=== PATIENT | female | born 1985 ===

== ENCOUNTER 2016-10-03 09:04 | Emergency (ER) | payer MEDICAID ==
[2016-10-03 09:17] VITALS: BMI 24.1
[2016-10-03 09:20] VITALS: BP 127/85; PULSE 79; RESP 18; TEMP 98.1; O2SAT 98
[2016-10-03] MEDS ORDERED: Lidocaine 5% Patch TD STA (09:38)
--- NOTE | 2016-10-03 09:42 | ED PDOC ---
Arrival/HPI - General Chief Complaint: Back Pain Time Seen by Provider: 10/03/16 09:38 Historian: Patient - History of Present Illness Narrative History of Present Illness (Text): 10/03/16 09:39 31 y/o female, no pmh, nkda, c/o lower back pain x 1 day with no fall or trauma. Aching pain, spasm sensation, aggravated by movement, no rash, no numbness or tingling, no urinary or bowel incontinence or retention, no night sweat, no coughing, no other medical or psychological complaints. Past Medical History - Provider Review Nursing Documentation Reviewed: Yes - Infectious Disease Hx of Infectious Diseases: None - Psychiatric Hx Substance Use: No - Surgical History Hx Section: Yes (x2) - Anesthesia Hx Anesthesia: Yes Hx Anesthesia Reactions: No Hx Malignant Hyperthermia: No Family/Social History - Physician Review Nursing Documentation Reviewed: Yes Family/Social History: Unknown Family HX Smoking Status: Never Smoked Hx Alcohol Use: No Hx Substance Use: No Allergies/Home Meds Allergies/Adverse Reactions: Allergies No Known Allergies Allergy (Verified 04/08/14 10:04) Review of Systems - Review of Systems Constitutional: absent: Fatigue, Fevers Eyes: absent: Vision Changes ENT: absent: Hearing Changes Respiratory: absent: SOB, Cough, Sputum Cardiovascular: absent: Chest Pain Gastrointestinal: absent: Abdominal Pain, Diarrhea, Nausea, Vomiting Musculoskeletal: Back Pain, Myalgias. absent: Arthralgias, Neck Pain, Joint Swelling Skin: absent: Rash, Pruritis, Skin Lesions Neurological: absent: Headache, Dizziness, Focal Weakness, Gait Changes, Speech Changes, Facial Droop, Disequilibrium Psychiatric: absent: Anxiety, Depression Physical Exam Vital Signs Reviewed: Yes Vital Signs Temp Pulse Resp BP Pulse Ox 10/03/16 09:19 98.1 F 79 18 127/85 98 Temperature: Afebrile Blood Pressure: Normal Pulse: Regular Respiratory Rate: Normal Appearance: Positive for: Well-Appearing, Non-Toxic, Comfortable Pain Distress: Moderate Mental Status: Positive for: Alert and Oriented X 3 - Systems Exam Head: Present: Atraumatic, Normocephalic Pupils: Present: PERRL Extroacular Muscles: Present: EOMI Conjunctiva: Present: Normal Mouth: Present: Moist Mucous Membranes Neck: Present: Normal Range of Motion Respiratory/Chest: Present: Clear to Auscultation, Good Air Exchange. No: Respiratory Distress, Accessory Muscle Use Cardiovascular: Present: Regular Rate and Rhythm, Normal S1, S2. No: Murmurs Abdomen: Present: Normal Bowel Sounds. No: Tenderness, Distention, Peritoneal Signs Back: Present: Normal Inspection, Other (LS spine: +ttp and spasm noted on the bilateral paraspinal muscle region, no rash, no redness, no cellulitis, no cva tenderness, FROM without limitation but pain upon activemovement, sensation intact, motor 5/5, no saddling gait. ). No: CVA Tenderness, Midline Tenderness , Pain with Leg Raise, Decubitus Ulcer Upper Extremity: Present: Normal Inspection. No: Cyanosis, Edema Lower Extremity: Present: Normal Inspection. No: Edema Neurological: Present: GCS=15, Speech Normal, Motor Func Grossly Intact, Gait Normal, Memory Normal Skin: Present: Warm, Dry, Normal Color. No: Rashes Psychiatric: Present: Alert, Oriented x 3, Normal Insight, Normal Concentration Medical Decision Making ED Course and Treatment: 10/03/16 09:42 -toradol IM/lidoderm patch -UA 10/03/16 10:45 -UA show no UTI -Pain resolved and feels much better, will discharge home. -Discharge home with ibuprofen, flexeril, lidoderm patch, heat compression, avoid strenuous exercise or activity, follow up with your own pmd within 2 days , return to the ER for any new or worsening signs or symptoms. - Lab Interpretations Lab Results: Lab Results 10/03/16 09:38: Urine Color Yellow, Urine Appearance Clear, Urine pH 6.0, Ur Specific [place] >= 1.030, Urine Protein Trace H, Urine Glucose (UA) Negative, Urine Ketones Negative, Urine Blood Negative, Urine Nitrate Negative, Urine Bilirubin Negative, Urine Urobilinogen 0.2, Ur Leukocyte Esterase Negative, Urine RBC Negative, Urine WBC 0 - 2, Ur Epithelial Cells 10 - 12, Urine Bacteria Few I have reviewed the lab results: Yes Interpretation: No clinic. lab abnormalty - Medication Orders Current Medication Orders: Discontinued Medications Ketorolac Tromethamine (Toradol) 60 mg IM STAT STA Stop: 10/03/16 09:39 Last Admin: 10/03/16 09:47 Dose: 60 mg Lidocaine (Lidoderm) 1 ea TD STAT STA Stop: 10/03/16 09:39 Last Admin: 10/03/16 09:47 Dose: 1 karen - PA / ASSESSMENT ANALYST / Resident Statement / has reviewed & agrees with the documentation as recorded. Disposition/Present on Arrival - Present on Arrival Any Indicators Present on Arrival: No History of DVT/PE: No History of Uncontrolled Diabetes: No Urinary Catheter: No History of Decub. Ulcer: No History Surgical Site Infection Following: None - Disposition Have Diagnosis and Disposition been Completed?: Yes Diagnosis: Back muscle spasm, Back pain Disposition: HOME/ ROUTINE Disposition Time: 10:45 Patient Plan: Discharge Condition: IMPROVED Additional Instructions: Discharge home with ibuprofen, flexeril, lidoderm patch, heat compression, avoid strenuous exercise or activity, follow up with your own pmd within 2 days , return to the ER for any new or worsening signs or symptoms. Prescriptions: Cyclobenzaprine [Cyclobenzaprine HCl] 10 mg PO TID PRN #21 tab PRN Reason: Other Ibuprofen [Motrin Tab] 600 mg PO QID #24 tab Lidocaine 5% [Lidoderm] 1 patch TOP DAILY PRN #10 patch PRN Reason: Other Referrals: Irena Moore DO [Primary Care Provider] - Follow up with primary Forms: WORK NOTE
[2016-10-03 10:12] LABS: URINE BILIRUBIN NEGATIVE (NEGATIVE); URINE BLOOD NEGATIVE (NEGATIVE); URINE GLUCOSE (UA) NEGATIVE (NEGATIVE); URINE KETONE NEGATIVE (NEGATIVE); URINE LEUKOCYTE ESTERASE NEGATIVE Leu/uL (NEGATIVE); URINE PROTEIN TRACE mg/dL (<30 mg/dL); URINE UROBILINOGEN 0.2 E.U./dL (<1 E.U./dL)
[2016-10-03 10:20] LABS: URINE APPEARANCE CLEAR (CLEAR); URINE COLOR YELLOW (YELLOW)
[2016-10-03 10:21] LABS: URINE BACTERIA FEW (NEG); URINE RBC NEGATIVE /hpf (0-2); URINE WBC 0 - 2 /hpf (0-6)
== END 2016-10-03 10:58 | disposition home or self-care (01) ==
LOC: ED 09:04
DX: M54.5 Low back pain (principal); M62.830 Muscle spasm of back
CPT/HCPCS: 81001; 96372; 99284; J1885